=== PATIENT | female | born 1990 | race African-American/Black ===

== ENCOUNTER 2022-03-16 17:29 | Emergency (ER) | payer BC, MEDICAID, SELFPAY ==
--- NOTE | ~2022-03-16 | XR_ITS ---
EXAMINATION: XR chest 2V Exam Date/Time: 03/16/2022 18:00 CDT CLINICAL HISTORY: STERNAL CP,NUMBNESS TO BILATERAL HANDS,NO HX Comparison: 10/17/15. RESULT: Lines, tubes, and devices: None. Lungs and pleura: Clear. Cardiomediastinal silhouette: Stable cardiomediastinal silhouette. Other: No acute osseous or upper abdominal finding. IMPRESSION: No acute cardiopulmonary process Reviewed, dictated and finalized at location K.
--- NOTE | 2022-03-16 17:32 | ECG_ITS ---
Measurements Intervals [place] Rate: 60 P: 38 MD: 171 QRS: 19 QRSD: 84 T: -21 QT: 380 QTc: 381 Interpretive Statements SINUS RHYTHM NONSPECIFIC T-WAVE ABNORMALITY- ANT/INF LEADS BORDERLINE ECG Electronically Signed On 03-16-2022 17:44:27 CDT by Hai Guadarrama D.O.
[2022-03-16 17:38] VITALS: BP 135/89; PULSE 64; RESP 18; TEMP 36.7; O2SAT 100
[2022-03-16 18:02] LABS: Basophils Percent Auto 0.4 % (0.2-1.2); Eosinophils Absolute Auto 0.1 K/mm3 (0-0.3); Hematocrit 33.5 % (37.0-47.0); Hemoglobin 10.3 g/dL (12.0-15.0); Immature Granulocyte Absolute 0.01 K/mm3 (0.00-0.031); Immature Granulocyte Percent A 0.2 % (0-0.5); Lymphocytes Absolute Auto 2.16 K/mm3 (0.9-3.2); Lymphocytes Percent Auto 38.9 % (18.3-44.2); Mean Corpuscular HGB Conc 30.7 g/dl (32-36); Mean Corpuscular Hemoglobin 23.1 pg (26-34); Mean Corpuscular Volume 75.3 fl (80-100); Mean Platelet Volume 10.7 fl (7.4-10.4); Monocytes Absolute Auto 0.6 K/mm3 (0.1-0.6); Monocytes Percent Auto 10.1 % (2.6-8.5); Neutrophils Absolute Auto 2.7 K/mm3 (1.3-6.7); Neutrophils Percent Auto 48.4 % (45.5-73.1); Platelet Count Result 288 k/mm3 (150-375); Red Blood Count 4.45 M/mm3 (4.2-5.4); Red Cell Distribution Width 14.2 % (11.5-14.5); White Blood Count 5.6 K/mm3 (4.5-10.0)
[2022-03-16 18:10] LABS: Alanine Aminotransferase 18 U/L (4-35); Albumin Level 4.2 g/dL (3.5-5.1); Alkaline Phosphatase 42 U/L (38-126); Anion Gap 6 mmol/L (8-16); Aspartate Amino Transferase 28 U/L (14-36); Bilirubin,Total 0.3 mg/dL (0.2-1.3); Blood Urea Nitrogen 11 mg/dL (7-17); Carbon Dioxide 26 mmol/L (22-30); Chloride 108 mmol/L (98-107); Estimated CRCL calculation 72 ml/min; Estimated Glomerular Filt Rate > 60; Glucose 93 mg/dL (65-110); Lipase 66 U/L (23-300); Sodium 140 mmol/L (137-145)
[2022-03-16 18:11] LABS: INR 1.2; Prothrombin Time 14.9 Seconds (11.1-14.7)
[2022-03-16 18:12] LABS: Partial Thromboplastin Time 30.3 SECONDS (22.3-36.8)
[2022-03-16 18:22] LABS: Troponin I < 0.012 ng/mL (0.000-0.034)
[2022-03-16] MEDS: BELLADONNA ALK/PHENOB ELIX 10 ML, MAG HYDROX/ALUMINUM HYD/SIMETH 30 ML, LIDOCAINE HCL 2... PO (20:28)
[2022-03-16 20:30] VITALS: BP 132/90; PULSE 60; PULSE 65; RESP 12; O2SAT 100
[2022-03-16 21:01] LABS: Troponin I < 0.012 ng/mL (0.000-0.034)
--- NOTE | 2022-03-16 21:41 | ED.CHESTPAIN ---
HPI - Chest Pain General Chief Complaint: Chest Pain Stated Complaint: Hand Numbness, Chest Pain Time Seen by Provider: 03/16/22 20:12 Source: patient Mode of arrival: ambulatory History of Present Illness HPI narrative: 31-year-old female presents today with complaints of intermittent chest pain that started yesterday. Patient states chest pain occurs it feels like a pressure with numbness radiating down bilateral arms. Patient denies any neck or back issues. Patient denies any relieving or aggravating factors. Patient denies shortness of breath, pain radiating down jaw or arm, diaphoresis, cough, sore throat, fever, or body aches. Patient denies history of hypertension, hyperlipidemia, asthma. Related Data Allergies Allergy/AdvReac Type Severity Reaction Status Date / Time No Known Allergies Allergy Verified 03/16/22 20:32 Review of Systems Review of Systems: CONSTITUTIONAL: Denies fever, chills, or sweats. EYES: Denies visual changes, redness, or discharge. ENT: Denies rhinorrhea, congestion, sore throat, or otalgia. CARDIOVASCULAR: Chest pain with numbness radiating down both arms. denies palpitations, or edema. RESPIRATORY: Denies cough or dyspnea. GASTROINTESTINAL: Denies abdominal pain, nausea, vomiting, or diarrhea. GENITOURINARY: Denies dysuria or hematuria. SKIN: Denies rash or itching. MUSCULOSKELETAL: Denies back pain, joint pain, or myalgia. NEUROLOGIC: Denies headache, numbness, dizziness, or weakness. PSYCHIATRIC: Denies anxiety or depression. Exam Narrative: GENERAL: Well-appearing, well-nourished, and in no acute distress. HEAD: Normocephalic, atraumatic. EYES: PERRLA and EOMI. ENT: Nares clear, no rhinorrhea or epistaxis. Mucous membranes moist. Oropharynx without tonsillar hypertrophy exudate or other lesions. Bilateral TMs pearly joaquin nonbulging NECK: Supple. No adenopathy or masses. No carotid bruits or JVD CHEST: Clear to auscultation. No respiratory distress. No wheezes rales or rhonchi. No tenderness on palpation HEART: Regular rate and rhythm. No murmur heard. Normal peripheral pulses. ABDOMEN: Soft, nontender, nondistended, normal active bowel sounds. EXTREMITIES: Normal range of motion. No edema. Hand grasp strong and equal bilaterally. SKIN: Warm, dry, no rash. NEURO: No focal deficits. Alert and oriented x3. Neck with full range of motion. PSYCH: Normal mood and affect. Course Vital Signs Vital signs: Vital Signs Temperature 36.7 C 03/16/22 17:38 Pulse Rate 64 03/16/22 17:38 Respiratory Rate 18 03/16/22 17:38 Blood Pressure 135/89 03/16/22 17:38 Pulse Oximetry 100 03/16/22 17:38 Temperature 36.7 C 03/16/22 17:38 Pulse Rate 64 03/16/22 22:23 Respiratory Rate 18 03/16/22 22:23 Blood Pressure 109/66 03/16/22 22:23 Pulse Oximetry 100 03/16/22 22:23 MDM - Chest Pain MDM Narrative Medical decision making narrative: HPI as noted. Patient given GI cocktail currently without pain. WBCs 5.6, hemoglobin 10.3, troponin negative, EKG without ST changes. Likely chest pain related to GERD low suspicion for cardiac issue. Will discharge home with plan follow-up with primary care for further management. Differential Diagnosis Differential diagnosis: Likely atypical chest pain, costochondritis, chest pain and other (GERD) Medical Records Data Attestation: I reviewed the patient's medical records. Lab Data Attestation: I reviewed the patient's lab results. Result diagrams: 03/16/22 17:44 03/16/22 17:44 Labs: Lab Results 03/16/22 03/16/22 03/16/22 Range/Units 17:44 17:44 17:44 WBC 5.6 (4.5-10.0) K/mm3 RBC 4.45 (4.2-5.4) M/mm3 Hgb 10.3 L (12.0-15.0) g/dL Hct 33.5 L (37.0-47.0) % MCV 75.3 L (80-100) fl MCH 23.1 L (26-34) pg MCHC 30.7 L (32-36) g/dl RDW 14.2 (11.5-14.5) % Plt Count 288 (150-375) k/mm3 MPV 10.7 H (7.4-10.4) fl Immature Gran % (Auto) 0.2 (0-0.5) % Gómez
[2022-03-16 22:23] VITALS: BP 109/66; PULSE 64; RESP 18; O2SAT 100
== END 2022-03-16 22:24 | disposition home or self-care (01) ==
PROVIDERS: Emergency Medicine; Emergency Provider Nurse Practitioner Family
DX: R07.89 Other chest pain (principal); R94.31 Abnormal electrocardiogram [ECG] [EKG]
CPT/HCPCS: 36415; 71046; 80053; 83690; 84484; 85025; 85610; 85730; 93005; 99284; A9270

== ENCOUNTER 2023-05-23 16:32 | Emergency (ER) | payer BC, MEDICAID, SELFPAY ==
--- NOTE | ~2023-05-23 | CT_ITS ---
EXAMINATION: CT abdomen pelvis w con DATE: 05/23/2023 18:35 INDICATION: suprapubic ttp TECHNIQUE: Computed tomography (CT) of the abdomen and pelvis was performed with 100 mL Omnipaque-350 intravenous contrast. Automated exposure control and iterative reconstruction technique were employe d. The dose-length product was 450.50 mGy-cm. COMPARISON: None. FINDINGS: Lower thorax: Unremarkable Liver: Normal. Biliary/Gallbladder: Gallbladder is normal. No bile duct dilation. Pancreas: No mass or duct dilation. Spleen: Normal. Adrenals:No mass. Kidneys: No mass, stone, or hydronephrosis. GI tract: Mild distal esophageal and gastric wall edema. No small or large bowel dilation. Normal krupa endix. Mesentery/Peritoneum: No ascites, mass, or free air. Retroperitoneum: No mass. Pelvis: Heterogeneous uterine enhancement, likely due to uterine fibroids. Normal left ovary. Corpus luteal cyst on the right. Mild wall thickening in a partially distended urinary bladder. Soft Tissues: Uncomplicated fat-containing umbilical hernia, with mild localized diastases. Bones: No acute osseous finding. IMPRESSION: Cystitis versus bladder wall thickening from incomplete distention. Reviewed, dictated and finalized at location K.
[2023-05-23 16:33] VITALS: BP 138/74; PULSE 74; RESP 15; TEMP 37.1; O2SAT 100
[2023-05-23 17:04] LABS: Basophils Percent Auto 0.2 % (0.2-1.2); Eosinophils Absolute Auto 0.1 K/mm3 (0-0.3); Eosinophils Percent Auto 0.5 % (0-4.4); Hematocrit 34.2 % (37.0-47.0); Hemoglobin 10.7 g/dL (12.0-15.0); Immature Granulocyte Absolute 0.03 K/mm3 (0.00-0.031); Immature Granulocyte Percent A 0.2 % (0-0.5); Lymphocytes Absolute Auto 1.16 K/mm3 (0.9-3.2); Lymphocytes Percent Auto 9.5 % (18.3-44.2); Mean Corpuscular HGB Conc 31.3 g/dl (32-36); Mean Corpuscular Hemoglobin 22.8 pg (26-34); Mean Corpuscular Volume 72.9 fl (80-100); Mean Platelet Volume 10.5 fl (7.4-10.4); Monocytes Absolute Auto 1.1 K/mm3 (0.1-0.6); Monocytes Percent Auto 9.1 % (2.6-8.5); Neutrophils Absolute Auto 9.9 K/mm3 (1.3-6.7); Neutrophils Percent Auto 80.5 % (45.5-73.1); Platelet Count Result 240 k/mm3 (150-375); Red Blood Count 4.69 M/mm3 (4.2-5.4); Red Cell Distribution Width 15.9 % (11.5-14.5); White Blood Count 12.3 K/mm3 (4.5-10.0)
[2023-05-23 17:26] LABS: Alanine Aminotransferase 18 U/L (6-35); Albumin Level 4.3 g/dL (3.5-5.1); Alkaline Phosphatase 50 U/L (38-126); Anion Gap 2 mmol/L (8-16); Aspartate Amino Transferase 32 U/L (14-36); Bilirubin,Total 1.1 mg/dL (0.2-1.3); Blood Urea Nitrogen 12 mg/dL (7-17); Calcium 9.2 mg/dL (8.4-10.2); Carbon Dioxide 26 mmol/L (22-30); Chloride 105 mmol/L (98-107); Estimated CRCL calculation 81 ml/min; Estimated Glomerular Filt Rate > 60; Glucose 104 mg/dL (65-110); Lipase 51 U/L (23-300); Potassium 3.8 mmol/L (3.4-5.0); Sodium 133 mmol/L (137-145)
[2023-05-23 17:31] LABS: Anisocytosis 1+ (NORMAL); Burr Cells 1+ (NORMAL); Hypochromasia 1+ (NORMAL); Platelet Estimate Adequate (Adequate)
[2023-05-23 17:32] LABS: Ovalocytes 1+ (NORMAL); Schistocytes Rare (NORMAL)
--- NOTE | 2023-05-23 17:43 | ED.GENADULT ---
HPI - General Adult General Chief complaint: Abdominal Pain Stated complaint: abd pain Time Seen by Provider: 05/23/23 16:54 Source: patient Mode of arrival: ambulatory Limitations: no limitations History of Present Illness HPI narrative: This is a 33-year-old female who presents to the ED with chief complaint of intermittent lower abdominal pain ongoing for the past couple of weeks and worse in the past 2 days. Patient reports that she was sitting in [place] this morning and noticed the pain became acutely worse. Reports it was a 10 out of 10 at that time. Reports it is 8 out of 10 here in the ED. Denies any alleviating or exacerbating factors. She says she saw her PCP who ordered x-rays for this week but she could not wait for that. Denies any abdominal surgical history. Last bowel movement yesterday. Reports subjective fevers. Denies nausea, vomiting, urinary problems. Denies any vaginal symptoms or concern for STD. States her last normal menstrual period was mid April. Related Data Allergies Allergy/AdvReac Type Severity Reaction Status Date / Time No Known Allergies Allergy Verified 05/23/23 16:33 Exam Narrative: GENERAL: Well-appearing, well-nourished, and in no acute distress. HEAD: Normocephalic, atraumatic. EYES: PERRLA and EOMI. ENT: Nares clear, no rhinorrhea or epistaxis. Mucous membranes moist. Oropharynx without tonsillar hypertrophy exudate or other lesions. NECK: Supple. No adenopathy or masses. CHEST: No respiratory distress. Clear to auscultation. No wheezes rales or rhonchi HEART: Regular rate and rhythm. No murmur heard. Normal peripheral pulses. ABDOMEN: Periumbilical and suprapubic tenderness present. Soft, nondistended, normal active bowel sounds. MSK: Normal range of motion. No edema. SKIN: Warm, dry, no rash. NEURO: Alert and oriented x3. No focal deficits. PSYCH: Normal mood and affect. Course Vital Signs Vital signs: Vital Signs Temperature 98.8 F 05/23/23 16:33 Pulse Rate 74 05/23/23 16:33 Respiratory Rate 15 05/23/23 16:33 Blood Pressure 138/74 05/23/23 16:33 Pulse Oximetry 100 05/23/23 16:33 Oxygen Delivery Room Air 05/23/23 16:33 Temperature 97.8 F 05/23/23 19:58 Pulse Rate 67 05/23/23 19:58 Respiratory Rate 15 05/23/23 19:58 Blood Pressure 138/78 05/23/23 19:58 Pulse Oximetry 100 05/23/23 19:58 Oxygen Delivery Room Air 05/23/23 16:33 Medical Decision Making MDM Narrative Medical decision making narrative: This is a 33-year-old female who presents to the ED with chief complaint of lower abdominal pain ongoing for the past week and worse today. Vitals are normal. Exam shows some periumbilical and suprapubic tenderness present. Initial lab work shows slightly elevated white count of 12.3. Urinalysis shows evidence of infection. CT scan of the abdomen with IV contrast reveals Cystitis versus bladder wall thickening from incomplete distention. . Although she is not having a lot of urinary symptoms her presentation is consistent with this diagnosis of cystitis. She will be given antibiotics for UTI. She remained stable for discharge. Supportive measures for home discussed and return precautions were given. Patient is understanding and agreeable with the plan for discharge and follow-up with PCP. Vital Signs Vital Signs: Vital Signs Temperature 98.8 F 05/23/23 16:33 Pulse Rate 74 05/23/23 16:33 Respiratory Rate 15 05/23/23 16:33 Blood Pressure 138/74 05/23/23 16:33 Pulse Oximetry 100 05/23/23 16:33 Oxygen Delivery Room Air 05/23/23 16:33 Temperature 97.8 F 05/23/23 19:58 Pulse Rate 67 05/23/23 19:58 Respiratory Rate 15 05/23/23 19:58 Blood Pressure 138/78 05/23/23 19:58 Pulse Oximetry 100 05/23/23 19:58 Oxygen Delivery Room Air 05/23/23 16:33 Lab Data 05/23/23 16:57 05/23/23 16:57 Labs: Lab Results 05/23/23 05/23/23 Range/Units 16:
[2023-05-23 17:45] LABS: Appearance Urine Cloudy (Clear); Bacteria Urine Rare /hpf; Bilirubin Urine Negative (Negative); Blood Urine Trace (Negative); Color Urine Yellow (Yellow); Glucose Urine UA Negative (Negative); Ketones Urine Negative (Negative); Leukocyte Esterase Ur Trace LEU/UL (Negative); Nitrate Urine Negative (Negative); Non Pathogenic Casts 0-2; Protein Urine Negative (Negative); Specific Grav Ur 1.014 (1.001-1.035); Squamous Epithelial Cell Urine Few /hpf (Few); pH Urine 5.5 (5.0-9.0)
[2023-05-23 17:46] LABS: Add Urine Microscopic? YES
[2023-05-23] MEDS: HYDROmorphone HCL INJ (*CRX) 1 MG/ML SYR 0.5 MG IV PUSH (18:12)
--- NOTE | 2023-05-23 19:25 | PC.NURSE ---
This RN assumed care of patient.
[2023-05-23 19:58] VITALS: BP 138/78; PULSE 67; RESP 15; TEMP 36.6; O2SAT 100
== END 2023-05-23 20:00 | disposition home or self-care (01) ==
PROVIDERS: Emergency Medicine; Emergency Provider Physician Assistant; PCP Physician Assistant
DX: N39.0 Urinary tract infection, site not specified (principal)
CPT/HCPCS: 36415; 74177; 80053; 81001; 81025; 83690; 85025; 87086; 96374; 99284; J1170; Q9967

== ENCOUNTER 2024-01-18 12:55 | Emergency (ER) | payer MEDICAID, SELFPAY ==
[2024-01-18 13:34] VITALS: BP 140/91; PULSE 78; RESP 20; TEMP 36.1; O2SAT 100
--- NOTE | 2024-01-18 15:13 | PC.NURSE ---
pt called x2 to exam room. No answer in waiting room.
== END 2024-01-18 15:36 | disposition left against medical advice (07) ==
LOC: ANHED 15:32
PROVIDERS: PCP Physician Assistant
DX: S01.81XA Laceration without foreign body of other part of head, initial encounter (principal); W01.0XXA Fall on same level from slipping, tripping and stumbling without subsequent striking against object, initial encounter
CPT/HCPCS: 99199

== ENCOUNTER 2025-09-20 05:05 | Observation (INO) | payer OTHER, SELFPAY ==
[2025-09-20] VITALS (8 sets, daily range): BP systolic 126–144; BP diastolic 72–85; PULSE 55–65; RESP 14–17; TEMP 36.6–37.3; O2SAT 98–100; BMI 27.0
--- NOTE | ~2025-09-20 | CT_ITS ---
EXAMINATION: CT abdomen pelvis w con DATE: 09/20/2025 06:14 INDICATION: Flank pain. TECHNIQUE: Computed tomography (CT) of the abdomen and pelvis was performed with 100 mL Omnipaque 350 intravenous contrast. Automated exposure control and iterative reconstruction technique were employed. The dose-length product was 423.72 mGy-cm. COMPARISON: CT abdomen and pelvis 05/23/2023 FINDINGS: The visualized portions of the lung bases demonstrate mild atelectasis. No pleural effusion. The heart size is normal. No pericardial effusion. The liver, gallbladder, spleen, pancreas, adrenal glands, and kidneys are normal. There are no dilated loops of bowel. The appendix is normal. There is a ventral hernia containing nonobstructed small bowel. There are no pathologically enlarged lymph nodes. There is no free intraperitoneal fluid. There is mild lumbar spondylosis. IMPRESSION: 1. Ventral hernia containing nonobstructed small bowel. Reviewed, dictated and finalized at location E. S [employer]IST
[2025-09-20 05:29] LABS: BEDSIDEPREGUCG Negative (Negative)
[2025-09-20 05:34] LABS: Hematocrit 29.1 % (37.0-47.0); Hemoglobin 8.8 g/dL (12.0-15.0); Immature Granulocyte Percent A 0.0 % (0-0.5); Lymphocytes Absolute Auto 1.75 K/mm3 (0.9-3.2); Mean Corpuscular HGB Conc 30.2 g/dl (32-36); Mean Corpuscular Hemoglobin 20.5 pg (26-34); Mean Corpuscular Volume 67.7 fl (80-100); Nucleated Red Blood Cells Absolute Auto 0.000 K/mm3 (0.0-0.012); Nucleated Red Blood Cells Perc 0.0 % (0.0-0.2); Platelet Count Result 323 k/mm3 (150-375); Red Blood Count 4.30 M/mm3 (4.2-5.4); White Blood Count 4.3 K/mm3 (4.5-10.0)
[2025-09-20 05:39] LABS: Add Urine Microscopic? YES; Appearance Urine Cloudy (Clear); Glucose Urine UA Negative (Negative); Leukocyte Esterase Ur Negative LEU/UL (Negative); Nitrate Urine Negative (Negative); Non Pathogenic Casts 0-2; Specific Grav Ur 1.023 (1.001-1.035)
--- NOTE | 2025-09-20 05:42 | ED_ITS ---
HPI - General Adult General Chief complaint: Abdominal Pain Stated complaint: flank pain Time Seen by Provider: 09/20/25 05:24 History of Present Illness HPI narrative: This is a 35-year-old female no past medical history presenting for flank/abdominal pain. Patient said that starting yesterday she developed pain on her R lower back raditing to the RLQ. It is making her nauseous. It is not associated with fevers, chest pain difficulty breathing nausea vomiting diarrhea or urinary symptoms. She is not taking anything for pain control. Patient is not sexually active. No vaginal bleeding or discharge. Last menstrual period was 2 weeks ago. Related Data Allergies Allergy/AdvReac Type Severity Reaction Status Date / Time No Known Allergies Allergy Verified 09/20/25 05:05 Exam 2 Narrative: APPEARANCE: No apparent distress. Head: atraumatic. EYES: EOMI, NOSE: Atraumatic NECK: Trachea midline RESPIRATORY: No increased rate of breathing CARDIOVASCULAR: RRR, ABDOMINAL: Non-distended, Tenderness palpation the right lower quadrant rebound tenderness. No CVA tenderness. MUSCULOSKELETAl: No obvious deformities NEURO: Alert. Moving 4/4 extremities SKIN:: Warm, dry. Normal color PSYCHIATRIC: Normal affect Course Vital Signs Vital signs: Vital Signs Temperature 97.9 F 09/20/25 05:11 Pulse Rate 61 09/20/25 05:11 Respiratory Rate 16 09/20/25 05:11 Blood Pressure 134/84 09/20/25 05:11 Pulse Oximetry 100 09/20/25 05:11 Oxygen Delivery Room Air 09/20/25 05:11 Temperature 97.9 F 09/20/25 05:11 Pulse Rate 61 09/20/25 05:11 Respiratory Rate 16 09/20/25 05:11 Blood Pressure 134/84 09/20/25 05:11 Pulse Oximetry 100 09/20/25 05:11 Oxygen Delivery Room Air 09/20/25 05:11 Medical Decision Making [facility] Narrative Medical decision making narrative: -Course: 35-year-old female presenting with right-sided abdominal pain. Patient has tenderness in the right lower quadrant. CT abdomen pelvis showed thickening of the distal tip of the appendix with inflammatory changes concerning for acute early appendicitis. Case was discussed with Dr. Yap. She will be admitted for surgical evaluation. Given fluids, antibiotics, and pain medication. -DDX includes but is not limited to: Appendicitis, UTI, pyelo, kidney stone, colitis Vital Signs Vital Signs: Vital Signs Temperature 97.9 F 09/20/25 05:11 Pulse Rate 61 09/20/25 05:11 Respiratory Rate 16 09/20/25 05:11 Blood Pressure 134/84 09/20/25 05:11 Pulse Oximetry 100 09/20/25 05:11 Oxygen Delivery Room Air 09/20/25 05:11 Temperature 97.9 F 09/20/25 05:11 Pulse Rate 61 09/20/25 05:11 Respiratory Rate 16 09/20/25 05:11 Blood Pressure 134/84 09/20/25 05:11 Pulse Oximetry 100 09/20/25 05:11 Oxygen Delivery Room Air 09/20/25 05:11 Lab Data 09/20/25 05:26 09/20/25 05:26 Labs: Lab Results 09/20/25 09/20/25 Range/Units 05:26 05:27 WBC Pending RBC Pending Hgb Pending Hct Pending MCV Pending MCH Pending MCHC Pending RDW Pending Plt Count Pending MPV Pending Immature Gran % (Auto) Pending Neut % (Auto) Pending Lymph % (Auto) Pending [place] % (Auto) Pending Eos % (Auto) Pending Baso % (Auto) Pending Lymph # (Auto) Pending [place] # (Auto) Pending Eos # (Auto) Pending Baso # (Auto) Pending Abs Immat Gran (auto) Pending Absolute Neuts (auto) Pending Absolute Nucleated RBC Pending Nucleated RBC % Pending Sodium Pending Potassium Pending Chloride Pending Carbon Dioxide Pending Anion Gap Pending BUN Pending Creatinine Pending Estim Creat Clear Calc Pending Estimated GFR Pending Glucose Pending Calcium Pending Total Bilirubin Pending AST Pending ALT Pending Alkaline Phosphatase Pending Total Protein Pending Albumin Pending Urine Color Pending Urine Appearance Pending Urine pH Pending Ur Specific [place] Pending Urine Protein Pending Urine Glucose (UA) Pending Urine Ketones Pending Ur Blood (Man) Pending Urine Nitrate Pending Urine Bilirubin Pending Urine Urobilinogen Pending Leukocyte Esterase Rfl Pending POC Urine HCG, Qual Negative (Negative) Discharge Plan Discharge Clinical Impression: Acute appendicitis Patient Disposition: Home Condition: Stable Instructions: Antibiotic Form Patient Language: Maori Prescriptions: No Action nitrofurantoin monohyd/m-cryst [Macrobid] 100 mg capsule 100 mg PO Q12H 5 Days Qty: 10 0RF Rx Instructions: must administer with a meal/food Follow-up/Referrals: Derik,PEDRO LUIS Harris [Primary Care Provider, Unknown]
[2025-09-20 05:54] LABS: Hypochromasia 1+; Ovalocytes 1+; Schistocytes Rare
[2025-09-20 05:55] LABS: Alanine Aminotransferase 18 U/L (6-35); Albumin Level 4.1 g/dL (3.5-5.1); Alkaline Phosphatase 43 U/L (38-126); Anion Gap 7 mmol/L (4-12); Aspartate Amino Transferase 26 U/L (14-36); Bilirubin,Total 0.3 mg/dL (0.2-1.3); Blood Urea Nitrogen 14 mg/dL (7-17); Calcium 8.6 mg/dL (8.4-10.2); Carbon Dioxide 24 mmol/L (22-30); Chloride 108 mmol/L (98-107); Estimated CRCL calculation 80 ml/min; Estimated Glomerular Filt Rate > 60; Glucose 93 mg/dL (65-110); Potassium 3.7 mmol/L (3.4-5.0); Sodium 139 mmol/L (137-145); Total Protein 7.3 g/dL (6.3-8.2)
[2025-09-20] MEDS: HYDROmorphone HCL INJ (*CRX) 1 MG/ML SYR 0.5 MG IV PUSH (07:19)
[2025-09-20] MEDS: ONDANSETRON INJ 4 MG/2 ML VIAL IV PUSH (07:19)
[2025-09-20] MEDS: SODIUM CHLORIDE 0.9% IV 2,000 ML 999 ML IV CONT (07:20)
[2025-09-20] MEDS: PIPERACILLIN/TAZOBACTAM SOD 3.375 GM in SODIUM CHLORIDE 0.9% IV 50 ML 100 ML IVPB (07:20)
--- NOTE | 2025-09-20 08:20 | ADMGEN ---
This patient, Sonja Simon, was admitted to 2 Medical Room 261-01. Patient/family oriented to hospital policies and general routines including ID bracelet, bed and alarms, visiting hours, pain management, procedures, bathroom and other care routines, personal items, smoking policy, room service/diet, and visiting hours. Information on how to activate the Rapid Response Team has been discussed. Patient/Family are encouraged to report perceived risks to care and to ask questions if they do not understand what they are told or what they should do.
[2025-09-20] MEDS: SODIUM CHLORIDE 0.9% IV 1,000 ML 100 ML IV CONT ×2 (10:19→20:57)
--- NOTE | 2025-09-20 11:13 | WPDCN ---
Assessment and Plan Assessment and plan (1) Right lower quadrant abdominal pain: Code(s): R10.31 - Right lower quadrant pain Status: Acute Assessment and Plan: Patient presented to the hospital this morning with right lower quadrant and flank pain that started yesterday morning. Denies any nausea or vomiting. Last bowel movement was a few days ago, not abnormal for her. Denies any abdominal surgical history. 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 Upon admission to the emergency department, patient was afebrile with a normal white blood cell count. A CT was obtained in the initial read was suspicious for early tip appendicitis. Patient was admitted to the hospital for possible appendectomy. The CT was later read by [facility] radiologist who labeled the appendix to be normal. A 2nd opinion was then obtained from Dr. Solomon, who agreed that the patient had a normal appendix. Upon exam, patient is tender to right lower quadrant, but also flank and back. We will not plan for any surgical intervention at this time, as suspicion for appendicitis is low. We will continue to monitor patient throughout the day and treat pain. Clear liquid diet. Advance as tolerated. Antibiotics not necessary at this time. Plan Discussed patient's case and plan of care with Dr. Yap. HPI Data of Consult Date/Time: 09/20/25 11:13 Requesting Physician: Dinora Cuellar MD Primary Care Provider: Chaim More, PA Consult Narrative Narrative: Sonja Simon is a 35 year old otherwise healthy female who we have been asked to see in surgical consultation for right lower quadrant pain. Patient states that she 1st started having right flank and back pain yesterday morning. She stayed in bed all day. States that the pain migrated to her right lower quadrant of her abdomen. Ate some broccoli chatter soup for dinner. Denies any nausea or vomiting. She did not take any medications for the pain, but states that she used a heating pad on the area and this helped. When patient woke up this morning, pain had increased in severity, prompting her to present to the ED. upon arrival, patient had a normal white blood cell count. Afebrile. CT was obtained and preliminary read identified mild wall thickening of the tip of the appendix with the appendix measuring 8.7 mm with mild surrounding inflammatory stranding, concerning for early acute appendicitis. The report was then read by [facility] radiologist in the appendix was labeled normal. Ventral hernia containing nonobstructed small bowel was identified. Patient was admitted to the hospital. Upon my exam, patient endorses continued flank and right lower quadrant pain. Denies any previous abdominal surgery. Denies history of ovarian cyst or any other sawyer cork slabs related issues. States that she has not had a bowel movement in a few days, but that this is not uncommon for her. [facility] Family History Family History (Updated 09/20/25 @ 09:46 by Madeline Johnston RN) Other No significant family history Social History Social History Smoking status: Never smoker Alcohol intake: never Substance use: never Substance use type: does not use Lack of Transportation: No Lack of Food: Never True Current Housing: I Have Housing Concerned About Future Housing: No Difficulty Paying Gas/Electric Bills: No Difficulty Paying for Meds: No Currently Unemployed: No Education: High School Diploma/GED Difficulty w/ Childcare or Family Care: No Spiritual care concerns: No Meds Home Medications and Allergies Home Medications ?Medication ?Instructions ?Recorded ?Confirmed ?Type No Home Medications 09/20/25 09/20/25 History Allergies Allergy/AdvReac Type Severity Reaction Status Date / Time No Known Allergies Allergy Verified 09/20/25 09:45 Vital Signs Vital Signs - 24 hr 09/20/25 05:11 09/20/25 07:21 09/20/25 08:00 Temperature 97.9 F 98.1 F Pulse Rate 61 65 60 Respiratory Rate 16 17 16 Blood Pressure 134/84 129/84 139/85 Pulse Oximetry 100 100 100 Oxygen Delivery Room Air 09/20/25 08:24 09/20/25 08:25 Temperature Pulse Rate 60 Respiratory Rate 14 14 Blood Pressure 144/81 H Pulse Oximetry 100 100 Oxygen Delivery Room Air Exam Const: General: comfortable and no acute distress Eyes: General: appearance normal, both eyes and all related structures Neck: Neck: supple and no JVD Resp: Effort & Inspection: normal respiratory effort Cardio: Rate: regular rate GI: Inspection: non-distended GI Palp: Yes Soft to palpation, Yes Tenderness to palpation present (GI) (Right lower quadrant and right flank/lower back) and No Guarding due to palpation present (GI) Auscultation: normal bowel sounds Skin: General skin exam: normal color and no rashes or lesions noted Extrem: General: normal to inspection Psych: Mental Status: mental status grossly normal Results Labs 09/20/25 05:26 09/20/25 05:26 Labs: Short CBC 09/20/25 Range/Units 05:26 WBC 4.3 L (4.5-10.0) K/mm3 Hgb 8.8 L (12.0-15.0) g/dL Hct 29.1 L (37.0-47.0) % Plt Count 323 (150-375) k/mm3 BMP 09/20/25 05:26 Sodium 139 Potassium 3.7 Chloride 108 H Carbon Dioxide 24 BUN 14 Creatinine 0.89 Glucose 93 Calcium 8.6 Liver Function 09/20/25 Range/Units 05:26 Total Bilirubin 0.3 (0.2-1.3) mg/dL AST 26 (14-36) U/L ALT 18 (6-35) U/L Alkaline Phosphatase 43 (38-126) U/L Albumin 4.1 (3.5-5.1) g/dL Urine 09/20/25 Range/Units 05:26 Urine Color Yellow (Yellow) Urine Appearance Cloudy H (Clear) Urine pH 5.0 (5.0-9.0) Ur Specific [place] 1.023 (1.001-1.035) Urine Protein Negative (Negative) mg/dL Urine Glucose (UA) Negative (Negative) mg/dL Imaging Radiologist's impression: ITS Impressions Abdomen/Pelvis CT 09/20/25 07:05 IMPRESSION: 1. Ventral hernia containing nonobstructed small bowel.
[2025-09-20] MEDS: HYDROcodone/acetaminophen (*CRX) 5-325 MG TABLET 1 TAB PO ×2 (11:59→21:04)
[2025-09-20] MEDS: ONDANSETRON HCL ODT 4 MG TABLET PO (12:00)
[2025-09-20] MEDS: MORPHINE SULFATE (*CRX) 4 MG/ML INJ IV PUSH (16:49)
[2025-09-20] MEDS: SULFAMETHOXAZOLE/TRIMETHOPRIM 800/160 MG DS TABLET 1 TAB PO (21:05)
[2025-09-21 05:23] LABS: Hematocrit 26.6 % (37.0-47.0); Hemoglobin 8.1 g/dL (12.0-15.0); Immature Granulocyte Percent A 0.2 % (0-0.5); Lymphocytes Absolute Auto 1.92 K/mm3 (0.9-3.2); Mean Corpuscular HGB Conc 30.5 g/dl (32-36); Mean Corpuscular Hemoglobin 20.6 pg (26-34); Mean Corpuscular Volume 67.5 fl (80-100); Nucleated Red Blood Cells Absolute Auto 0.000 K/mm3 (0.0-0.012); Nucleated Red Blood Cells Perc 0.0 % (0.0-0.2); Platelet Count Result 280 k/mm3 (150-375); Red Blood Count 3.94 M/mm3 (4.2-5.4); White Blood Count 4.3 K/mm3 (4.5-10.0)
[2025-09-21 05:28] VITALS: BP 137/73; PULSE 62; RESP 16; TEMP 36.6; O2SAT 100
[2025-09-21] MEDS: SODIUM CHLORIDE 0.9% IV 1,000 ML 100 ML IV CONT ×2 (05:32→15:52)
[2025-09-21] MEDS: HYDROcodone/acetaminophen (*CRX) 5-325 MG TABLET 1 TAB PO ×2 (05:36→09:31)
[2025-09-21 05:42] LABS: Alanine Aminotransferase 14 U/L (6-35); Albumin Level 3.6 g/dL (3.5-5.1); Alkaline Phosphatase 42 U/L (38-126); Anion Gap 7 mmol/L (4-12); Aspartate Amino Transferase 22 U/L (14-36); Bilirubin,Total 0.5 mg/dL (0.2-1.3); Blood Urea Nitrogen 5 mg/dL (7-17); Calcium 8.1 mg/dL (8.4-10.2); Carbon Dioxide 23 mmol/L (22-30); Chloride 107 mmol/L (98-107); Estimated CRCL calculation 75 ml/min; Estimated Glomerular Filt Rate > 60; Glucose 84 mg/dL (65-110); Potassium 3.7 mmol/L (3.4-5.0); Sodium 137 mmol/L (137-145); Total Protein 6.5 g/dL (6.3-8.2)
[2025-09-21 05:50] LABS: Hypochromasia 1+
[2025-09-21 05:51] LABS: Ovalocytes 1+; Schistocytes None Seen
[2025-09-21] MEDS: SULFAMETHOXAZOLE/TRIMETHOPRIM 800/160 MG DS TABLET 1 TAB PO ×2 (09:17→21:59)
[2025-09-21 09:22] VITALS: RESP 16; O2SAT 100
--- NOTE | 2025-09-21 10:22 | PM.PNGS ---
Progress Note: A&P Assessment and Plan (1) Right lower quadrant abdominal pain: Code(s): R10.31 - Right lower quadrant pain Status: Acute Assessment and Plan: CT reviewed with in house radiologist who agreed that appendix is normal. Patient still complaining of RLQ pain and right lower back pain. Denies nausea or vomiting this morning. States that the [place] helps with the pain. Advance diet to full liquids. Will give 30 cc milk of magnesia. Defer antibiotics as WBC remains low. Will continue to monitor patient with serial abdominal exams and labs. Plan Discussed patient's case and plan of care with Dr. Yap. Subjective Subjective Date/Time Seen: 09/21/25 10:22 Patient reports: no new complaints, feels better, tolerating liquids well, bowel movement and afebrile Interval history: Patient doing well today. Still complains of some lower abdominal pain, but states that the [place] helps. She felt as though the morphine was too strong. No nausea or vomiting this morning. Endorses a small formed BM. Exam Narrative: Still having some right lower back pain GI: Inspection: distended GI Palp: Yes Soft to palpation, Yes Tenderness to palpation present (GI) (diffusely across lower abdomen), No Guarding due to palpation present (GI) and Yes Hernia present (umbilical) Auscultation: normal bowel sounds Objective Data Vital Signs Vital Signs: Vital Signs - 24 hr 09/20/25 14:00 09/20/25 20:38 09/20/25 20:56 Temperature 99.1 F 98 F Pulse Rate 55 L 61 Respiratory Rate 16 16 Blood Pressure 127/83 126/72 Pulse Oximetry 98 100 Oxygen Delivery Room Air 09/20/25 21:57 09/21/25 05:28 09/21/25 09:22 Temperature 97.8 F Pulse Rate 62 Respiratory Rate 16 16 Blood Pressure 137/73 Pulse Oximetry 99 100 100 Oxygen Delivery Autopap Room Air Intake/Output Intake/Output: Intake & Output 09/18/25 09/19/25 09/20/25 09/21/25 23:59 23:59 23:59 23:59 Intake Total 1470 1058.3 Balance 1470 1058.3 Meds/Results Medications: Active Medications Generic Name Dose Route Start Last Admin Trade Name Freq PRN Reason Stop Dose Admin Hydrocodone Bitart/Acetaminophen 1 tab 09/20/25 16:05 09/21/25 09:31 Hydrocodone/Acetaminophen (*Crx) 5-325 Mg Tablet PO 1 tab Q4H PRN Administration Pain Rated 4-6 Sodium Chloride 1,000 mls @ 100 mls/hr 09/20/25 09:50 09/21/25 05:32 Normal Saline Iv IV CONT 100 mls/hr .Q10H ACE Administration Morphine Sulfate 4 mg 09/20/25 16:12 09/20/25 16:49 Morphine Sulfate (*Crx) 4 Mg/Ml Inj IV PUSH 4 mg Q4H PRN Administration Pain Rated 7-10 Ondansetron HCl 4 mg 09/20/25 11:32 09/20/25 12:00 Ondansetron Hcl Odt 4 Mg Tablet PO 4 mg Q6H PRN Administration Nausea And Vomiting Trimethoprim/Sulfamethoxazole 1 tab 09/20/25 21:00 09/21/25 09:17 Sulfamethoxazole/Trimethoprim 800/160 Mg Ds Tablet PO 1 tab Q12HR ACE Administration Radiology Results: ITS Impressions Abdomen/Pelvis CT 09/20/25 07:05 IMPRESSION: 1. Ventral hernia containing nonobstructed small bowel. Labs Labs: Laboratory Results - last 24 hr 09/21/25 05:12 WBC 4.3 L RBC 3.94 L Hgb 8.1 L Hct 26.6 L MCV 67.5 L MCH 20.6 L MCHC 30.5 L RDW 19.2 H Plt Count 280 MPV 10.5 H Immature Gran % (Auto) 0.2 Neut % (Auto) 39.9 L Lymph % (Auto) 44.2 Isabella % (Auto) 12.2 H Eos % (Auto) 2.8 Baso % (Auto) 0.7 Lymph # (Auto) 1.92 Isabella # (Auto) 0.5 Eos # (Auto) 0.1 Baso # (Auto) 0.0 Abs Immat Gran (auto) 0.01 Absolute Neuts (auto) 1.7 Absolute Nucleated RBC 0.000 Band Neutrophils % Not Reportable Nucleated RBC % 0.0 Platelet Estimate Adequate Hypochromasia 1+ Ovalocytes 1+ Schistocytes None seen Sodium 137 Potassium 3.7 Chloride 107 Carbon Dioxide 23 Anion Gap 7 BUN 5 L D Creatinine 0.95 Estim Creat Clear Calc 75 Estimated GFR > 60 Glucose 84 Calcium 8.1 L Total Bilirubin 0.5 AST 22 ALT 14 Alkaline Phosphatase 42 Total Protein 6.5 Albumin 3.6
[2025-09-21] MEDS: MAGNESIUM HYDROXIDE SUSP 30 ML UDC PO ×2 (11:17→13:23)
--- NOTE | 2025-09-21 13:08 | P.HP_ITS ---
H&P: HPI History of Present Illness Date/Time: 09/20/25 13:08 Chief Complaint: right lower quadrant pain Narrative: Sonja Simon is a 35 year old otherwise healthy female who we have been asked to see in surgical consultation for right lower quadrant pain. Patient states that she 1st started having right flank and back pain yesterday morning. She stayed in bed all day. States that the pain migrated to her right lower quadrant of her abdomen. Ate some broccoli chatter soup for dinner. Denies any nausea or vomiting. She did not take any medications for the pain, but states that she used a heating pad on the area and this helped. When patient woke up this morning, pain had increased in severity, prompting her to present to the ED. upon arrival, patient had a normal white blood cell count. Afebrile. CT was obtained and preliminary read identified mild wall thickening of the tip of the appendix with the appendix measuring 8.7 mm with mild surrounding inflammatory stranding, concerning for early acute appendicitis. The report was then read by [facility] radiologist in the appendix was labeled normal. Ventral hernia containing nonobstructed small bowel was identified. Patient was admitted to the hospital. Upon my exam, patient endorses continued flank and right lower quadrant pain. Denies any previous abdominal surgery. 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 States that she has not had a bowel movement in a few days, but that this is not uncommon for her. [facility] Family History Family History (Updated 09/20/25 @ 09:46 by Madeline Johnston RN) Other No significant family history Social History Social History Alcohol intake: never Substance use: never Substance use type: does not use Lack of Transportation: No Lack of Food: Never True Current Housing: I Have Housing Concerned About Future Housing: No Difficulty Paying Gas/Electric Bills: No Difficulty Paying for Meds: No Currently Unemployed: No Education: High School Diploma/GED Difficulty w/ Childcare or Family Care: No Spiritual care concerns: No Meds Home Medications and Allergies Home Medications ?Medication ?Instructions ?Recorded ?Confirmed ?Type No Home Medications 09/20/25 09/20/25 H istory Allergies Allergy/AdvReac Type Severity Reaction Status Date / Time No Known Allergies Allergy Verified 09/20/25 09:45 Vital Signs Vital Signs - 24 hr 09/20/25 14:00 09/20/25 20:38 09/20/25 20:56 Temperature 99.1 F 98 F Pulse Rate 55 L 61 Respiratory Rate 16 16 Blood Pressure 127/83 126/72 Pulse Oximetry 98 100 Oxygen Delivery Room Air 09/20/25 21:57 09/21/25 05:28 09/21/25 09:22 Temperature 97.8 F Pulse Rate 62 Respiratory Rate 16 16 Blood Pressure 137/73 Pulse Oximetry 99 100 100 Oxygen Delivery Autopap Room Air Exam Const: General: comfortable and no acute distress Eyes: General: appearance normal, both eyes and all related structures Neck: Neck: supple and no JVD Resp: Effort & Inspection: normal respiratory effort Cardio: Rate: regular rate GI: Other: non-distended GI Palp: Yes Soft to palpation, Yes Tenderness to palpation present (GI) (Right lower quadrant and right flank/lower back) and No Guarding due to palpation present (GI) Auscultation: normal bowel sounds Skin: General skin exam: normal color and no rashes or lesions noted Extrem: General: normal to inspection Psych: Mental Status: mental status grossly normal H&P: Results Labs Labs: Short CBC 09/21/25 Range/Units 05:12 WBC 4.3 L (4.5-10.0) K/mm3 Hgb 8.1 L (12.0-15.0) g/dL Hct 26.6 L (37.0-47.0) % Plt Count 280 (150-375) k/mm3 BMP 09/21/25 05:12 Sodium 137 Potassium 3.7 Chloride 107 Carbon Dioxide 23 BUN 5 L D Creatinine 0.95 Glucose 84 Calcium 8.1 L Liver Function 09/21/25 Range/Units 05:12 Total Bilirubin 0.5 (0.2-1.3) mg/dL AST 22 (14-36) U/L ALT 14 (6-35) U/L Alkaline Phosphatase 42 (38-126) U/L Albumin 3.6 (3.5-5.1) g/dL Assessment and Plan Assessment and plan (1) Right lower quadrant abdominal pain: Code(s): R10.31 - Right lower quadrant pain Status: Acute Assessment and Plan: Patient presented to the hospital this morning with right lower quadrant and flank pain that started yesterday morning. Denies any nausea or vomiting. Last bowel movement was a few days ago, not abnormal for her. Denies any abdominal surgical history. 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 Upon admission to the emergency department, patient was afebrile with a normal white blood cell count. A CT was obtained in the initial read was suspicious for early tip appendicitis. Patient was admitted to the hospital for possible appendectomy. The CT was later read by [facility] radiologist who labeled the appendix to be normal. A 2nd opinion was then obtained from Dr. Solomon, who agreed that the patient had a normal appendix. Upon exam, patient is tender to right lower quadrant, but also flank and back. We will not plan for any surgical intervention at this time, as suspicion for appendicitis is low. We will continue to monitor patient throughout the day and treat pain. Clear liquid diet. Advance as tolerated. Antibiotics not necessa ry at this time. Plan Discussed patient's case and plan of care with Dr. Yap.
[2025-09-21 14:00] VITALS: BP 135/80; PULSE 61; RESP 16; TEMP 36.4; O2SAT 100
[2025-09-21] MEDS: ONDANSETRON HCL ODT 4 MG TABLET PO (14:40)
[2025-09-21] MEDS: ONDANSETRON INJ 4 MG/2 ML VIAL IV PUSH (15:51)
[2025-09-21] MEDS: MORPHINE SULFATE (*CRX) 4 MG/ML INJ IV PUSH ×2 (15:51→21:59)
[2025-09-21 19:38] VITALS: BP 132/81; PULSE 57; RESP 20; TEMP 36.4; O2SAT 100
[2025-09-21 19:40] VITALS: BP 132/81; PULSE 57; RESP 20; TEMP 36.4; O2SAT 100
[2025-09-22] MEDS: SODIUM CHLORIDE 0.9% IV 1,000 ML 100 ML IV CONT ×2 (03:11→13:52)
[2025-09-22 04:27] VITALS: BP 129/82; PULSE 66; RESP 18; TEMP 36.4; O2SAT 100
[2025-09-22 04:30] VITALS: BP 129/82; PULSE 66; RESP 18; TEMP 36.4; O2SAT 100
[2025-09-22] MEDS: SULFAMETHOXAZOLE/TRIMETHOPRIM 800/160 MG DS TABLET 1 TAB PO ×2 (10:55→20:57)
--- NOTE | 2025-09-22 11:00 | PM.PNGS ---
Progress Note: A&P Assessment and Plan (1) Right lower quadrant abdominal pain: Code(s): R10.31 - Right lower quadrant pain Status: Acute Assessment and Plan: significantly improved, continue watchful observation with serial exams, continue Bactrim, will advance to regular diet Subjective Subjective Date/Time Seen: 09/22/25 11:00 Interval history: feels much better, pain significantly decreased, still with some nausea Review of Systems Review of Systems: All systems reviewed & are unremarkable except as noted in HPI and below Exam Const: General: cooperative, no acute distress and uncomfortable Resp: Auscultation: clear to auscultation bilaterally Cardio: Rate: regular rate Rhythm: regular rhythm GI: Inspection: normal to inspection and non-distended GI Palp: Yes abdominal tenderness, Yes Soft to palpation, No Guarding due to palpation present (GI) and No Rigid due to palpation Objective Data Vital Signs Vital Signs: Vital Signs - 24 hr 09/21/25 14:00 09/21/25 19:38 09/21/25 19:40 Temperature 36.4 C L 36.4 C L 36.4 C L Pulse Rate 61 57 L 57 L Respiratory Rate 16 20 20 Blood Pressure 135/80 132/81 132/81 Pulse Oximetry 100 100 100 Oxygen Delivery 09/21/25 20:00 09/22/25 04:27 09/22/25 04:30 Temperature 36.4 C 36.4 C Pulse Rate 66 66 Respiratory Rate 18 18 Blood Pressure 129/82 129/82 Pulse Oximetry 100 100 Oxygen Delivery Room Air Intake/Output Intake/Output: Intake & Output 09/19/25 09/20/25 09/21/25 09/22/25 23:59 23:59 23:59 23:59 Intake Total 1470 2406.6 1240 Output Total 500 Balance 1470 1906.6 1240 Meds/Results Medications: Active Medications Generic Name Dose Route Start Last Admin Trade Name Freq PRN Reason Stop Dose Admin Hydrocodone Bitart/Acetaminophen 1 tab 09/20/25 16:05 09/21/25 09:31 Hydrocodone/Acetaminophen (*Crx) 5-325 Mg Tablet PO 1 tab Q4H PRN Administration Pain Rated 4-6 Sodium Chloride 1,000 mls @ 100 mls/hr 09/20/25 09:50 09/22/25 03:11 Normal Saline Iv IV CONT 100 mls/hr .Q10H ACE Administration Morphine Sulfate 4 mg 09/20/25 16:12 09/21/25 21:59 Morphine Sulfate (*Crx) 4 Mg/Ml Inj IV PUSH 4 mg Q4H PRN Administration Pain Rated 7-10 Ondansetron HCl 4 mg 09/21/25 14:47 09/21/25 15:51 Ondansetron Inj 4 Mg/2 Ml Vial IV PUSH 4 mg Q6H PRN Administration Nausea And Vomiting Trimethoprim/Sulfamethoxazole 1 tab 09/20/25 21:00 09/22/25 10:55 Sulfamethoxazole/Trimethoprim 800/160 Mg Ds Tablet PO 1 tab Q12HR ACE Administration Radiology Results: ITS Impressions Abdomen/Pelvis CT 09/20/25 07:05 IMPRESSION: 1. Ventral hernia containing nonobstructed small bowel.
[2025-09-22] MEDS: HYDROcodone/acetaminophen (*CRX) 5-325 MG TABLET 1 TAB PO (11:06)
[2025-09-22 11:55] VITALS: O2SAT 99
[2025-09-22] MEDS: ONDANSETRON INJ 4 MG/2 ML VIAL IV PUSH (12:31)
[2025-09-22 14:00] VITALS: BP 140/83; PULSE 64; RESP 18; TEMP 36.7; O2SAT 96
[2025-09-22 20:00] VITALS: PULSE 58; O2SAT 100
[2025-09-22 21:20] VITALS: BP 124/62; PULSE 58; RESP 18; TEMP 36.3; O2SAT 100
[2025-09-23] MEDS: HYDROcodone/acetaminophen (*CRX) 5-325 MG TABLET 1 TAB PO ×2 (00:20→10:29)
[2025-09-23] MEDS: SODIUM CHLORIDE 0.9% IV 1,000 ML 100 ML IV CONT (02:12)
[2025-09-23 04:55] VITALS: BP 132/75; PULSE 61; RESP 16; TEMP 36.4; O2SAT 98
--- NOTE | 2025-09-23 10:05 | PM.DS ---
DS: Admitting Diagnosis Discharge Date 09/23/2025 Admitting Diagnosis abdominal pain DS: Discharge Diagnosis Discharge Diagnosis (1) Right lower quadrant abdominal pain: Code(s): R10.31 - Right lower quadrant pain Status: Acute Assessment and Plan: completely resolved at this point, tolerating a regular diet and having normal bowel function, follow-up 2 weeks DS: Summary Hospital Course Reason for hospitalization: right lower quadrant abdominal pain Hospital Course: The patient is a 35-year-old female presenting to the emergency department complaining of severe right lower quadrant abdominal pain. She reports the pain radiates to her flank and back. Patient also describes nausea and vomiting, anorexia. Workup in the emergency department, including imaging, was initially thought to be early appendicitis. The patient was admitted to the surgical service for serial exams and antibiotics. Upon further evaluation, the appendix was noted to be unremarkable on CT. The patient did not have a leukocytosis. The patient did have nausea and emesis. She was also found to be quite constipated. Subsequent bowel regimen including milk of magnesia seemed to stimulate her bowels. After the patient had a few bowel movements, she felt much improved. Her abdominal pain largely resolved. We were then able to advance her diet which she tolerated without difficulty. At this time, she will be discharged home on a regular diet. She will follow up with Dr. Yap in 2 weeks. Status at Discharge Functional status at discharge: independent ambulation Overall status at discharge: patient is progressing back to baseline Time Spent with Patient Time attestation: Total time spent providing and/or coordinating discharge services: Time spent: Less than 30 minutes Exam Const: General: cooperative, comfortable and no acute distress Resp: Auscultation: clear to auscultation bilaterally Cardio: Rate: regular rate Rhythm: regular rhythm GI: Inspection: normal to inspection and non-distended GI Palp: No abdominal tenderness, Yes Soft to palpation and No Tenderness to palpation present (GI) Discharge Plan Discharge Attending physician on discharge: Jim Yap Discharging Clinician: Julieta Aj Anticipated Discharge Date/Time: 09/23/25 12:00 Patient Disposition: Home Activity: may shower and as tolerated Diet: as tolerated Patient Instructions: Antibiotic Form Patient Language: Lithuanian Stand Alone Forms: General Discharge Information Follow-up/Referrals: Jim Yap MD [Physician, General Surgery] - 2 Weeks Discharge Medications: No Action No Home Medications Date of admission: 09/20/25 07:01 Primary Care Provider: Derik,Chaim Lopes Admitting Provider: Jim Yap Attending physician on admission: Jim Yap Condition: Stable
[2025-09-23] MEDS: SULFAMETHOXAZOLE/TRIMETHOPRIM 800/160 MG DS TABLET 1 TAB PO (10:29)
== END 2025-09-23 11:09 | disposition home or self-care (01) ==
LOC: ANHED 07:03 → ANH2MED 13:27 → ANH3MEDSUR 09-25 07:07
PROVIDERS: Admitting Provider Surgery; Emergency Provider Emergency Medicine; PCP Physician Assistant Medical; Visit Provider Surgery
DX: R10.31 Right lower quadrant pain (principal); K43.9 Ventral hernia without obstruction or gangrene
CPT/HCPCS: 36415; 74177; 80053; 81001; 81025; 85025; 96361; 96365; 96374; 96375; 96376; 99285; A9270; G0378; G0379; J1171; J2270; J2405; J2543; J7030; Q9967